=== PATIENT | male | born 1975 | race African-American/Black ===

== ENCOUNTER 2018-04-27 16:03 | Inpatient (IN) | payer OTHER ==
[2018-04-27 17:38] VITALS: BMI 21.1
--- NOTE | 2018-04-27 18:54 | HP ---
Admission ROS [facility] Chief Complaint: SEEKING REHAB SERVICES Allergies/Adverse Reactions: Allergies Allergy/AdvReac Type Severity Reaction Status Date / Time No Known Allergies Allergy Verified 04/27/18 18:49 History of Present Illness: 42 Y.O. WITH AN EXTENSIVE HISTORY OF COCAINE DEPENDENCE IS HERE SEEKING HIS FIRST ADMISSION TO REHAB SERVICES. PT. REPORTS HE USED HEROIN FOR THE FIRST TIME ON 04/21/18 AND OVERDOSED. HE WAS TAKEN TO [facility]. PT. PROVIDED PART OF HIS DISCHARGE PAPERWORK DATED 04/25/18 AND HE HAD A DIAGNOSIS OF SUBARACHNOID HEMORRAGE. Exam Limitations: No Limitations - Ebola screening Have you traveled outside of the country in the last 21 days: No Have you had contact with anyone from an Ebola affected area: No Have you been sick,other than usual withdrawal symptoms: No - Review of Systems Constitutional: Loss of Appetite, Changes in sleep, Unexplained wgt Loss EENT: reports: Nose Congestion Respiratory: reports: Wheezing Cardiac: reports: Lightheadedness GI: reports: No Symptoms Reported : reports: No Symptoms Reported Musculoskeletal: reports: Back Pain, Joint Pain (RIGHT SHOULDER) Integumentary: reports: No Symptoms Reported Neuro: reports: Numbness (RIGHT ARM), Tingling (RIGHT ARM), Weakness (RIGHT ARM) Endocrine: reports: No Symptoms Reported Hematology: reports: No Symptoms Reported Psychiatric: reports: Depressed Other Systems: Reviewed and Negative Patient History - Patient Medical History Hx Anemia: No Hx Asthma: No Hx Chronic Obstructive Pulmonary Disease (COPD): No Hx Cancer: No Hx Cardiac Disorders: No Hx Congestive Heart Failure: No Hx Hypertension: No Hx Hypercholesterolemia: No Hx Pacemaker: No HX Cerebrovascular Accident: No Hx Seizures: No Hx Dementia: No Hx Diabetes: No Hx Gastrointestinal Disorders: No Hx Liver Disease: No Hx Genitourinary Disorders: No Hx Sexually Transmitted Disorders: No Hx Renal Disease (ESRD): No Hx Thyroid Disease: No Hx Human Immunodeficiency Virus (HIV): No Hx Hepatitis C: No Hx Depression: Yes Hx Suicide Attempt: Yes (20 YEARS AGO ATTEMPTED TO OVERDOSE ) Hx Bipolar Disorder: No Hx Schizophrenia: No - Patient Surgical History Past Surgical History: Yes Other Surgical History: SURGICAL DRAINAGE OF ABSCESS 20 YEARS AGO Anesthesia Reaction: No - PPD History Previous Implant?: Yes Documented Results: Negative w/o proof PPD to be Administered?: Yes - Reproductive History Patient is a Female of Child Bearing Age (11 -55 yrs old): No - Smoking Cessation Smoking history: Current every day smoker Aproximately how many cigarettes per day: 20 Initiated information on smoking cessation: Yes 'Breaking Loose' booklet given: 04/27/18 - Substance & Tx. History Hx Alcohol Use: No Hx Substance Use: Yes Substance Use Type: Cocaine Hx Substance Use Treatment: Yes (OUTPATIENT PROGRAM: [facility] [place] 09/2017) - Substances Abused Cocaine Frequency: 3-6 times per week Amount used: $100 Age of first use: 19 Date of Last Use: 04/26/18 Family Disease History - Family Disease History Family Disease History: Diabetes: Mother, [place]: Grandparent ( ) Admission Physical Exam [facility] - Vital Signs Vital Signs: Vital Signs - 24 hr 04/27/18 17:35 Temperature 98.4 F Pulse Rate 77 Respiratory 18 Rate Blood Pressure 117/79 - Physical General Appearance: Yes: Disheveled, Anxious HEENTM: Yes: Within Normal Limits (PT. DENIED HEADACHE, CHANGES IN VISION, STIFF NECK, NAUSEA AND VOMITTING), EOMI, Hearing grossly Normal, Normal ENT Inspection, Normocephalic, Normal Voice Respiratory: Yes: Chest Non-Tender, Lungs Clear, Normal Breath Sounds, No Respiratory Distress, No Accessory Muscle Use Neck: Yes: No masses,lesions,Nodules, Trachea in good position Breast: Yes: Breast Exam Deferred Cardiology: Yes: Regular Rhythm, Regular Rate Abdominal: Yes: Normal Bowel Sounds, Non Tender, Flat Genitourinary: Yes: Within Normal Limits (NO COMPLAINTS REPORTED) Back: Yes: Normal Inspection Musculoskeletal: Yes: Gait Steady, Joint Stiffness (RIGHT ARM), Muscle weakness (RIGHT ARM) Extremities: Yes: Normal Capillary Refill, Normal Inspection, Normal Range of Motion, Non-Tender Neurological: Yes: Fully Oriented, Alert, Normal Mood/Affect, Normal Response, Numbness (RIGHT ARM) Integumentary: Yes: Normal Color, Dry, Warm Lymphatic: Yes: Within Normal Limits - Diagnostic (1) Nicotine dependence Current Visit: Yes Status: Chronic (2) Cocaine dependence Current Visit: Yes Status: Chronic (3) History of subarachnoid hemorrhage Current Visit: Yes Status: Acute (4) Neuropathy of right upper extremity Current Visit: Yes Status: Acute Cleared for Admission [facility] - Detox or Rehab [facility] Level of Care: Observation Bed Detox Regimen/Protocol: Not Applicable Claeared for Rehab Admission: Yes [facility] Breath Alcohol Content Breath Alcohol Content: 0 Urine Drug Screen - Results Drug Screen Negative: No Urine Drug Screen Results: STAN-Cocaine, BZO-Benzodiazepines Inpatient Rehab Admission - Initial Determination Are CD services needed?: Yes Free of communicable disease: Yes Not in need of hospitalization: Yes - Rehab Admission Criteria Previous failed treatment: Yes Poor recovery environment: Yes Comorbidities: Yes Lacks judgement: Yes Patient is meeting Inpatient Rehab admission criteria:: Yes
[2018-04-27] MEDS ORDERED: LOPERAMIDE HCL 2 MG CAPSULE PO PRN (19:11)
[2018-04-27] MEDS ORDERED: P-EPHED 60MG/TRIPROLIDI 2.5MG TABLET PO PRN (19:11)
[2018-04-27] MEDS ORDERED: ACETAMINOPHEN 325 MG TABLET (FP) PO PRN (19:11)
[2018-04-27] MEDS ORDERED: hydrOXYzine PAMOATE 50 MG CAPSULE (FP) PO PRN (19:11)
[2018-04-27] MEDS ORDERED: MAGNESIUM HYDROX 2400MG/30ML ORAL SUSPENSION 30 ML CUP PO PRN (19:11)
[2018-04-27] MEDS ORDERED: MAGNESIUM CITRATE 300 ML BOTTLE PO PRN (19:11)
[2018-04-27] MEDS ORDERED: guaiFENesin/D-METHORPHAN HB 10 ML UNIT-DOSE CUPS PO PRN (19:11)
[2018-04-27] MEDS ORDERED: MAG HYDROX/AL HYDROX/SIMETH 30 ML UNIT-DOSE CUP PO PRN (19:11)
[2018-04-27] MEDS ORDERED: MENTHOL/PHENOL 1 EACH UD MM PRN (19:11)
[2018-04-27] MEDS: THIAMINE HCL 100 MG TABLET (FP) PO SCH (21:13)
[2018-04-27] MEDS: NICOTINE POLACRILEX 2 MG GUM BUC PRN (23:07)
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
--- NOTE | 2018-04-28 09:37 | EKG ---
Test Reason : Blood Pressure : / mmHG Vent. Rate : 090 BPM Atrial Rate : 090 BPM P-R Int : 138 ms QRS Dur : 076 ms QT Int : 360 ms P-R-T Axes : 073 061 072 degrees QTc Int : 440 ms NORMAL SINUS RHYTHM NORMAL ECG NO PREVIOUS ECGS AVAILABLE Confirmed by CAMILA SINGLETARY MD ([id number]) on 04/28/2018 9:37:01 AM Referred By: Confirmed By:CAMILA SINGLETARY MD
[2018-04-28] MEDS: PRENATAL VITAMINS W/ FOLIC ACID TABLET (FP) PO SCH (10:12)
[2018-04-28] MEDS: NICOTINE 21 MG/24 HOURS TOPICAL PATCH TD SCH (10:12)
[2018-04-28 15:41] LABS: HEMATOCRIT 42.4 % (35.4-49); HEMOGLOBIN 14.3 GM/dL (11.7-16.9); MCH 31.9 pg (25.7-33.7); MCHC 33.6 g/dl (32.0-35.9); MEAN CELL VOLUME 94.7 fl (80-96); MEAN PLT VOLUME 9.4 fl (7.5-11.1); PLATELET COUNT 194 K/MM3 (134-434); RBC 4.48 M/mm3 (4.00-5.60); RDW 14.3 % (11.9-15.9); WHITE BLOOD COUNT 6.3 K/mm3 (4.0-10.0)
[2018-04-28 16:13] LABS: ALBUMIN 3.3 g/dl (3.4-5.0); ALK PHOS 59 U/L (45-117); ANION GAP 7 MMOL/L (8-16); BILIRUBIN,TOTAL 0.4 mg/dL (0.2-1); BLOOD UREA NITROGEN 14 mg/dL (7-18); CALCIUM 8.5 mg/dL (8.5-10.1); CHLORIDE 108 mmol/L (98-107); CO2 26 mmol/L (21-32); CREATININE 1.2 mg/dL (0.55-1.3); GLUCOSE,RANDOM 109 mg/dL (74-106); POTASSIUM 3.8 mmol/L (3.5-5.1); SGOT/AST 35 U/L (15-37); SGPT/ALT 42 U/L (13-61); SODIUM 141 mmol/L (136-145); TOT PROT 6.2 g/dl (6.4-8.2)
[2018-04-28] MEDS: IBUPROFEN 400 MG TABLET (FP) PO PRN ×2 (17:00→23:50)
[2018-04-28] MEDS: THIAMINE HCL 100 MG TABLET (FP) PO SCH (21:26)
[2018-04-28] MEDS: MELATONIN 5 MG TABLETS PO PRN (23:31)
[2018-04-29] MEDS: PRENATAL VITAMINS W/ FOLIC ACID TABLET (FP) PO SCH (09:57)
[2018-04-29] MEDS: NICOTINE 21 MG/24 HOURS TOPICAL PATCH TD SCH (09:57)
[2018-04-29] MEDS: IBUPROFEN 400 MG TABLET (FP) PO PRN ×2 (11:23→21:24)
[2018-04-29] MEDS: THIAMINE HCL 100 MG TABLET (FP) PO SCH (21:23)
[2018-04-29] MEDS: MELATONIN 5 MG TABLETS PO PRN (23:51)
[2018-04-30] MEDS: NICOTINE 21 MG/24 HOURS TOPICAL PATCH TD SCH (09:45)
[2018-04-30] MEDS: IBUPROFEN 400 MG TABLET (FP) PO PRN ×2 (09:46→18:10)
[2018-04-30] MEDS: PRENATAL VITAMINS W/ FOLIC ACID TABLET (FP) PO SCH (09:47)
[2018-04-30] MEDS: NICOTINE POLACRILEX 2 MG GUM BUC PRN (18:11)
[2018-04-30] MEDS: THIAMINE HCL 100 MG TABLET (FP) PO SCH (22:13)
[2018-05-01] MEDS: IBUPROFEN 400 MG TABLET (FP) PO PRN (08:48)
--- NOTE | 2018-05-01 09:41 | PN ---
S Progress Note Note: C/o lactose intolerance- requesting lactaid milk. Requesting gingerale for stomach issues. C/o pre-existing discomfort (R) arm/shoulder - states decreased ROM and and numbness. Pain is achy and a '7". Requesting increased pain medication. C/o difficulty sleeping FROM (R) shoulder. Abd S/NT. Pulses present. Plan: Gingerale BID Lactaid milk, if available Increase ibuprofen to 600 mg Q8H Increase melatonin to 10 mg HS
[2018-05-01] MEDS: NICOTINE 21 MG/24 HOURS TOPICAL PATCH TD SCH (09:49)
[2018-05-01] MEDS: PRENATAL VITAMINS W/ FOLIC ACID TABLET (FP) PO SCH (09:49)
[2018-05-01] MEDS: THIAMINE HCL 100 MG TABLET (FP) PO SCH (21:22)
[2018-05-01] MEDS: MELATONIN 5 MG TABLETS PO PRN ×2 (22:54)
[2018-05-01] MEDS: IBUPROFEN 600 MG TABLET (FP) PO PRN (22:55)
[2018-05-02 06:42] VITALS: BP 105/73; PULSE 68; TEMP 97.4
[2018-05-02] MEDS: IBUPROFEN 600 MG TABLET (FP) PO PRN ×2 (07:25→16:31)
[2018-05-02] MEDS: NICOTINE 21 MG/24 HOURS TOPICAL PATCH TD SCH (09:46)
[2018-05-02] MEDS: PRENATAL VITAMINS W/ FOLIC ACID TABLET (FP) PO SCH (09:46)
[2018-05-02] MEDS: THIAMINE HCL 100 MG TABLET (FP) PO SCH (22:33)
[2018-05-02] MEDS: MELATONIN 5 MG TABLETS PO PRN (23:43)
[2018-05-03] MEDS: IBUPROFEN 600 MG TABLET (FP) PO PRN ×2 (00:19→08:49)
[2018-05-03] MEDS: PRENATAL VITAMINS W/ FOLIC ACID TABLET (FP) PO SCH (10:07)
[2018-05-03] MEDS: NICOTINE 21 MG/24 HOURS TOPICAL PATCH TD SCH (10:07)
--- NOTE | 2018-05-03 16:19 | PN ---
[facility] Progress Note Note: PT SIGNED OUT AMA FOR PERSONAL REASONS. ALERT O X 3. NAD. PT WAS SEEN BY COUNSELING STAFF BEFORE EXITING.
== END 2018-05-03 10:11 | disposition left against medical advice (07) | DRG 770 ==
LOC: YASAS 16:03 → Y5N 18:29
PROVIDERS: ADMIT Psychiatry & Neurology Psychiatry; ATTEND Psychiatry & Neurology Psychiatry
PROC: HZ42ZZZ Group Counseling for Substance Abuse Treatment, Cognitive-Behavioral (ICD-10-PCS; principal; 2018-04-27)
DX: F14.20 Cocaine dependence, uncomplicated (principal); F17.210 Nicotine dependence, cigarettes, uncomplicated; F19.282 Other psychoactive substance dependence with psychoactive substance-induced sleep disorder; G62.9 Polyneuropathy, unspecified; Z86.79 Personal history of other diseases of the circulatory system; Z91.5 Personal history of self-harm
CPT/HCPCS: 36415; 80053; 85027; 86593; 86803; 87389; 93005; 93010